=== PATIENT | female | born 1995 | race Caucasian/White ===

== ENCOUNTER → 2017-08-27 | Outpatient (CLI) | payer OTHER ==
--- NOTE | 2017-08-27 11:48 | DIAGNOSTIC IMAGING REPORT ---
RIGHT ELBOW 3 VIEWS HISTORY: INJURY OF R WRIST AND R ELBOW COMPARISON: None. FINDINGS: There is no fracture or dislocation. Mild soft tissue swelling within the posterior proximal forearm. No elbow effusion. No radiopaque foreign bodies. IMPRESSION: No fractures. Electronically signed by: Fernie Rader M.D. 08/27/2017 11:47 AM Dictated Date/Time: 08/27/2017 11:44 AM
--- NOTE | 2017-08-27 11:50 | DIAGNOSTIC IMAGING REPORT ---
R WRIST MIN 3 VIEWS ROUTINE CLINICAL HISTORY: 22 years-old Female presenting with INJURY OF R WRIST AND R ELBOW. TECHNIQUE: Frontal, bilateral oblique, and lateral views the right wrist were obtained. COMPARISON: None. FINDINGS: No acute fracture or malalignment. Radiocarpal, intercarpal, and carpometacarpal articulations congruent. No widening of the distal radial ulnar joint. No radiographic soft tissue abnormality. IMPRESSION: No acute osseous injury of the right wrist. Electronically signed by: Kali Valenzuela M.D. 08/27/2017 11:49 AM Dictated Date/Time: 08/27/2017 11:48 AM
== END | disposition home or self-care (01) ==
LOC: C.RAD 11:13
PROVIDERS: ATTEND Nurse Practitioner Adult Health
DX: M25.521 Pain in right elbow (principal); M25.531 Pain in right wrist

== ENCOUNTER → 2017-09-17 | Outpatient (CLI) | payer OTHER ==
--- NOTE | 2017-09-17 11:37 | DIAGNOSTIC IMAGING REPORT ---
R SHOULDER MIN 2 VIEWS ROUTINE CLINICAL HISTORY: Right shoulder pain status post fall. COMPARISON: None FINDINGS: Alignment of the right shoulder is anatomic. There is no acute fracture. Joint spaces are preserved. IMPRESSION: No acute fracture or dislocation of the right shoulder. Electronically signed by: Zeyad Rick M.D. 09/17/2017 11:35 AM Dictated Date/Time: 09/17/2017 11:35 AM
== END | disposition home or self-care (01) ==
LOC: C.RAD1850 11:20
PROVIDERS: ATTEND Nurse Practitioner Adult Health
DX: M25.511 Pain in right shoulder (principal); W19.XXXA Unspecified fall, initial encounter